=== PATIENT | male | born 1970 | race Caucasian/White ===

== ENCOUNTER → 2016-12-27 | Outpatient (CLI) | payer OTHER | LOC: HEART 5 08:37 | DX: R07.9 Chest pain, unspecified (principal); I25.10 Atherosclerotic heart disease of native coronary artery without angina pectoris | CPT/HCPCS: 78452; A9502; J2785 ==

== ENCOUNTER 2021-07-03 23:58 | Emergency (ER) | payer OTHER ==
[2021-07-04] MEDS ORDERED: POLYTRIM EYE DR10 ML OS (02:30)
== END 2021-07-04 02:44 | disposition home or self-care (01) ==
LOC: ER1 23:58
DX: H10.32 Unspecified acute conjunctivitis, left eye (principal); Z88.0 Allergy status to penicillin; F17.210 Nicotine dependence, cigarettes, uncomplicated
CPT/HCPCS: 99283